=== PATIENT | female | born 1930 | race Caucasian/White ===

== ENCOUNTER → 2020-05-28 | Outpatient (CLI) | payer MEDICARE, OTHER ==
--- NOTE | 2020-05-28 10:36 | RAD ---
EXAM: Left knee, 4 views. HISTORY: Pain. Twisting injury. COMPARISON: None. FINDINGS: 4 views of the left knee are obtained. There is a left knee arthroplasty in expected positi on. 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 There is no or evidence of arthroplasty looseni ng or periprosthetic fracture. There is no significant joint effusion. There are small joint loose zeenat dies. IMPRESSION: Left knee arthroplasty in expected position. No acute osseous finding. Electronically signed by: Gloria Barr MD (05/28/2020 10:33 AM) [id number]
== END ==
LOC: RAD 10:05
PROVIDERS: ATTEND Family Medicine
DX: M25.562 Pain in left knee (principal); Z96.652 Presence of left artificial knee joint
CPT/HCPCS: 73564

== ENCOUNTER 2020-08-19 20:12 | Emergency (ER) | payer MEDICARE, OTHER ==
[~2020-08-19] VITALS: Ht 162.6 cm; Wt 93.4 kg
--- NOTE | 2020-08-19 20:25 | PHYS DOC ---
General Adult HPI: HPI: ".. I was feeling lite headed.. and I could not find my pulse..." ".. The last time I could not get my pulse.. I had to get a pacer... 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 Patient was a dependent. Pt. stated she could not find her pulse. The last time this happened she had a very slow heart rate.. and they had to put in a pacer. Pt. states pacer placement was approximately 5 yrs ago. She does have a follow up with a Echometer Engineer this coming weeks. Pt. does not remember his name currently. Pt. denies any changes in meds. No recent travel. No specific ill contacts. No history of immunosuppression. Patient did complete more during a Covid vaccination approximately 4 months ago. Patient normally follows with Dr. Aguirre. Review of Systems: Review of Systems: Constitutional: Denies fever or chills Eyes: Denies change in visual acuity HENT: Denies nasal congestion or sore throat Respiratory: Denies cough or shortness of breath Cardiovascular: Denies chest pain or edema GI: Denies abdominal pain, nausea, vomiting, bloody stools or diarrhea : Denies dysuria Musculoskeletal: Denies back pain or joint pain Integument: Denies rash Neurologic: Denies headache, focal weakness or sensory changes. Complains of generalized lightheaded-states not dizzy Endocrine: Denies polyuria or polydipsia Lymphatic: Denies swollen glands Psychiatric: Denies depression or anxiety Family History: Family History: Noncontributory Current Medications: Current Meds: See nursing for home meds Allergies: Allergies: No known drug allergies Physical Exam: PE: Constitutional: , no acute distress, non-toxic appearance. [] HENT: Normocephalic, atraumatic, bilateral external ears normal, oropharynx moist, no oral exudates, nose normal. [] Eyes: PERRLA, EOMI, conjunctiva normal, no discharge. [] Neck: Normal range of motion, no tenderness, supple, no stridor. [] Cardiovascular:Heart rate regular rhythm, no murmur []. Monitor occasionally shows pacer spikes. Lungs & Thorax: Bilateral breath sounds equal apex on auscultation [] Abdomen: Bowel sounds normal, soft, no tenderness, no masses, no pulsatile masses. Old surgical scar Skin: Warm, dry, no erythema, no rash. [Poor turgor Back: No tenderness, no CVA tenderness. [] Extremities: No tenderness, no cyanosis, no clubbing, ROM intact, no edema. [Bilateral knee scars. Left shoulder scar. Neurologic: Alert and oriented X 3, moves all extremities on request, has distal sensory,, no focal deficits noted. [] Psychologic: Affect anxious, judgement normal, mood normal. [] EKG: EKG: My interpretation EKG shows a supraventricular rhythm with left axis changes. There is some findings of pacer spike in lead I and II. [] Radiology/Procedures: Radiology/Procedures: [[address] [address] IMAGING REPORT Signed PATIENT: JOHN MARIE ACCOUNT: [id number] : 1930 LOCATION: ER AGE: 89 SEX: F EXAM STATUS: REG ER ORD. PHYSICIAN: SKY NAVAS MD REASON: dyssrhythmia, PROCEDURE: PORTABLE CHEST 1V XR CHEST 1V 08/19/2020 8:53 PM INDICATION: Dysrhythmia COMPARISON: None available TECHNIQUE: Portable frontal view of the chest is provided. FINDINGS: The cardiomediastinal silhouette is within normal limits. Left chest wall cardiac device is identified with leads projecting over the right atrium and right ventricle. There are no significant pleural effusions. There is no pulmonary vascular congestion. No pneumothorax. 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 Left reverse shoulder arthroplasty changes are present. IMPRESSION: There is no acute cardiopulmonary process. Electronically signed by: Jorge A Francis MD (08/19/2020 9:25 PM) [facility] DICTATED AND SIGNED BY: JORGE A FRANCIS MD DATE: 08/19/202123 CC: SKY NAVAS MD; MARY BETH AGUIRRE MD ~MTH0 0 ][address] [address] IMAGING REPORT Signed PATIENT: JOHN MARIE ACCOUNT: [id number] : 1930 LOCATION: ER AGE: 89 SEX: F EXAM STATUS: REG ER ORD. PHYSICIAN: SKY NAVAS MD REASON: dizzy PROCEDURE: CT HEAD WO CONTRAST CT HEAD INDICATION: Dizziness COMPARISON: None Available. Exposure: One or more of the following individualized dose reduction techniques were utilized for this examination: 1. Automated exposure control 2. Adjustment of the mA and/or kV according to patient size 3. Use of iterative reconstruction technique TECHNIQUE: 5 mm contiguous axial images were obtained from the skull base to the vertex in both bone and soft tissue algorithm. FINDINGS: Mild bilateral periventricular white matter hypodensities likely chronic small vessel ischemic disease. No evidence of acute intracranial hemorrhage. No extra-axial fluid collections. No mass effect or midline shift. Probable tiny multiple cystic structures or fatty hypodensities identified in the choroid plexus in the bilateral lateral ventricles. Basal cisterns are patent. No fractures identified.Hughes-white differentiation is preserved.Globes and orbits are within normal limits. Paranasal sinuses and mastoid air cells are clear. IMPRESSION: 1. No acute intracranial findings. 2. Probable tiny multiple cystic structures or fatty hypodensities identified in the choroid plexus in the bilateral lateral ventricles. Electronically signed by: Camilo Driscoll MD (08/19/2020 9:45 PM) [id number] DICTATED AND SIGNED BY: CAMILO DRISCOLL MD DATE: 08/19/20 2138 CC: SKY NAVAS MD; MARY BETH AGUIRRE MD ~MTH0 0 Heart Score: C/O Chest Pain: N/A HEART Score for Chest Pain: HEART Score for Chest Pain Response (Comments) Value History Slighlty/Non-Suspicious 0 ECG Normal 0 Age > 65 2 Risk Factors 1 or 2 Risk Factors 1 Troponin < Normal Limit 0 Total 3 Risk Factors: Risk Factors: DM, Current or recent (<one month) smoker, HTN, HLP, family history of CAD, obesity. Risk Scores: Score 0 - 3: 2.5% MACE over next 6 weeks - Discharge Home Score 4 - 6: 20.3% MACE over next 6 weeks - Admit for Clinical Observation Score 7 - 10: 72.7% MACE over next 6 weeks - Early Invasive Strategies Course & Med Decision Making: Course & Med Decision Making Pertinent Labs and Imaging studies reviewed. (See chart for details) Patient follow-up primary care. Patient to take a daily aspirin. Patient return if any concerns. Push fluids. Impression: 1. Complaints of malaise 2. Viral syndrome [] Dragon Disclaimer: Dragon Disclaimer: This electronic medical record was generated, in whole or in part, using a voice recognition dictation system. Departure Departure: Referrals: MARY BETH AGUIRRE MD (PCP) Jessica Disclaimer This chart was dictated in whole or in part using Voice Recognition software in a busy, high-work load, and often noisy Emergency Department environment. It may contain unintended and wholly unrecognized errors or omissions. SKY NAVSA MD Aug 19, 2020 20:24
--- NOTE | 2020-08-19 21:27 | RAD ---
XR CHEST 1V 08/19/2020 8:53 PM INDICATION: Dysrhythmia COMPARISON: None available TECHNIQUE: Portable frontal view of the chest is provided. FINDINGS: The cardiomediastinal silhouette is within normal limits. Left chest wall cardiac device is identifie d with leads projecting over the right atrium and right ventricle. There are no significant pleural effusions. There is no pulmonary vascular congestion. No pneumothora x. 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 Left reverse shoulder arthroplasty changes a re present. IMPRESSION: There is no acute cardiopulmonary process. Electronically signed by: Haylee Alvarez MD (08/19/2020 9:25 PM) DEANNA
[2020-08-19] MEDS ORDERED: IV RINGERS SOLUTION,LACTATED 1,000 ML IV SCH (21:30)
[2020-08-19 21:43] LABS: BASO # 0.1 x10^3/uL (0.0-0.2); BASO % 1 % (0-3); EOS # 0.5 x10^3/uL (0.0-0.7); EOS % 6 % (0-3); HEMATOCRIT 41.8 % (36.0-47.0); HEMOGLOBIN 13.9 g/dL (12.0-15.5); LYMPH # 1.5 x10^3/uL (1.0-4.8); LYMPH % 20 % (24-48); MEAN CORPUSCULAR HEMOGLOBIN 31 pg (25-35); MEAN CORPUSCULAR HGB CONC 33 g/dL (31-37); MEAN CORPUSCULAR VOLUME 94 fL (79-100); MONO # 0.9 x10^3/uL (0.0-1.1); MONO % 12 % (0-9); NEUT # 4.6 x10^3uL (1.8-7.7); NEUT % 61 % (31-73); PLATELET COUNT 244 x10^3/uL (140-400); RED BLOOD COUNT 4.44 x10^6/uL (3.50-5.40); RED CELL DISTRIBUTION WIDTH 13.9 % (11.5-14.5); WHITE BLOOD COUNT 7.6 x10^3/uL (4.0-11.0)
--- NOTE | 2020-08-19 21:48 | RAD ---
CT HEAD INDICATION: Dizziness COMPARISON: None Available. Exposure: One or more of the following individualized dose reduction techniques were utilized for thi s examination: 1. Automated exposure control 2. Adjustment of the mA and/or kV according to patient size 3. Use of iterative reconstruction technique TECHNIQUE: 5 mm contiguous axial images were obtained from the skull base to the vertex in both bone and soft tissue algorithm. FINDINGS: Mild bilateral periventricular white matter hypodensities likely chronic small vessel ischemic diseas e. No evidence of acute intracranial hemorrhage. No extra-axial fluid collections. No mass effect or midline shift. Probable tiny multiple cystic structures or fatty hypodensities iden tified in the choroid plexus in the bilateral lateral ventricles. Basal cisterns are patent. No fractures identified.Hughes-white differentiation is preserved.Globes and orbits are within normal l imits. Paranasal sinuses and mastoid air cells are clear. IMPRESSION: 1. No acute intracranial findings. 2. Probable tiny multiple cystic structures or fatty hypodensities identified in the choroid plexus in the bilateral lateral ventricles. Electronically signed by: Camilo Driscoll MD (08/19/2020 9:45 PM) [id number]
[2020-08-19 21:49] LABS: CALCIUM 9.2 mg/dL (8.5-10.1); GFR 52.3; POTASSIUM 4.2 mmol/L (3.5-5.1)
[2020-08-19 22:01] LABS: ALBUMIN 3.4 g/dL (3.4-5.0); DIRECT BILIRUBIN 0.1 mg/dL (0.0-0.2); MAGNESIUM 1.9 mg/dL (1.8-2.4); TOTAL BILIRUBIN 0.3 mg/dL (0.2-1.0); TOTAL PROTEIN 6.7 g/dL (6.4-8.2)
[2020-08-19 22:15] LABS: BACTERIA,URINE 0 /HPF (0-FEW); BILIRUBIN,URINE NEG (NEG); CLARITY,URINE CLEAR; COLOR,URINE YELLOW; GLUCOSE,URINE NEG (NEG); NITRITE,URINE NEG (NEG); RBC,URINE 0 /HPF (0-2); SQUAMOUS EPITHELIAL CELL,UR OCC /LPF; UROBILINOGEN,URINE 0.2 mg/dL (0.2 mg/dL); WBC,URINE RARE /HPF (0-4)
[2020-08-19 22:17] LABS: BARBITURATES NEG (NEG); BENZODIAZEPINES NEG (NEG); CANNABINOIDS NEG (NEG); COCAINE NEG (NEG); METHADONE NEG (NEG); OPIATES NEG (NEG); PHENCYCLIDINE NEG (NEG)
[2020-08-19 22:20] LABS: AMPHETAMINE/METHAMPHETAMINE NEG (NEG)
[2020-08-19 23:10] VITALS: BP 147/88
--- NOTE | 2020-08-20 06:41 | EKG ---
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
[2020-08-20 15:58] LABS: THYROID STIM HORMONE (TSH) 2.849 uIU/mL (0.358-3.740)
== END 2020-08-19 23:12 | disposition home or self-care (01) ==
LOC: ER 20:12
DX: B34.9 Viral infection, unspecified (principal); R53.81 Other malaise
CPT/HCPCS: 36415; 70450; 71045; 80048; 80061; 80076; 80307; 81001; 82550; 83735; 83880; 84443; 84484; 85025; 87086; 93005; 96360; 96361; 99285; J7120

== ENCOUNTER 2020-11-27 07:34 | Emergency (ER) | payer MEDICARE, OTHER ==
[~2020-11-27] VITALS: Ht 162.6 cm; Wt 118.0 kg
[2020-11-27] MEDS ORDERED: MECLIZINE 12.5 MG TABLET. PO ONE (08:15)
[2020-11-27] MEDS ORDERED: ONDANSETRON PF 4 MG/2 ML VIAL. IVP ONE (08:15)
--- NOTE | 2020-11-27 09:19 | PHYS DOC ---
Past History Past Surgical History: Cholecystectomy, Knee Replacement Additional Past Surgical Histo: shoulder replacement Alcohol Use: None General Adult EDM: Chief Complaint: DIZZY/LIGHT HEADED HPI: HPI: Patient is a 89-year-old female coming in for an episode of dizziness this morning. Patient states that when she woke up she looked up and heard her alarm and things are spinning. Patient said the symptoms are better with being still and worse with turning her head or trying to stand. Patient states she had slight episodes yesterday. States because of the dizziness she vomited once and dry heaves twice. Patient states symptoms are completely resolved now. Denies any falls, tinnitus. Patient has baseline hearing loss. Patient states that she has been congested and having to blow her nose more frequently. Review of Systems: Review of Systems: All other systems within normal limits except for as noted in the HPI Current Medications: Current Meds: Current Medications Medications (Trade) Dose Ordered Sig/Sarah Start Time Stop Time Status Last Admin Dose Admin Meclizine HCl (Antivert) 25 mg 1X ONCE 11/27/20 08:15 11/27/20 08:16 DC Ondansetron HCl (Zofran) 4 mg 1X ONCE 11/27/20 08:15 11/27/20 08:16 DC Allergies: Allergies: Allergies Coded Allergies Type Severity Reaction Last Updated Verified No Known Drug Allergies 08/19/20 No Physical Exam: PE: Constitutional: Well developed, well nourished, no acute distress, non-toxic appearance. [] HENT: Normocephalic, atraumatic, bilateral external ears normal, nose normal. Bilateral TMs are [] Eyes: PERRLA, conjunctiva normal, no discharge. No nystagmus, extraocular was intact [] Neck: No rigidity, supple, no stridor. [] Cardiovascular: Regular rate and rhythm, brisk cap refill [] Lungs & Thorax: Non labored symmetric respirations, no tachypnea or respiratory distress [] Abdomen: Soft, nondistended. Skin: Warm, dry, no erythema, no rash. [] Back: Unremarkable Extremities: No deformities, range of motion grossly intact, no lower extremity edema [] Neurologic: Alert and oriented X 3, no focal deficits noted. Unable to induce nystagmus with movement [] Psychologic: Affect normal, judgement normal, mood normal. [] Current Patient Data: Vital Signs: Vital Signs Date Time Temp Pulse Resp B/P (MAP) Pulse Ox O2 Delivery O2 Flow Rate FiO2 11/27/20 08:18 98.2 84 16 149/92 111 97 Room Air EKG: EKG: Sinus rhythm, left axis deviation, no ST elevation or depression, no ectopy, normal intervals [] Radiology/Procedures: Radiology/Procedures: [][place] [address] IMAGING REPORT Signed PATIENT: JOHN MARIE ACCOUNT: [id number] : 1930 LOCATION: ER AGE: 89 SEX: F EXAM STATUS: REG ER ORD. PHYSICIAN: FREDDY FERGUSON MD REASON: vertigo PROCEDURE: CT HEAD WO CONTRAST CT HEAD/BRAIN WO Date: 11/27/2020 8:50 AM Clinical Indication: vertigo: Comparison: 08/19/2020. Technique: 5 mm axial tomographic images were obtained of the head without contrast. These were viewed on brain and bone windows. One or more of the following dose reduction techniques were utilized: Automated exposure control (AEC), Adjustment of mA and/or kV according to patient size, Use of iterative reconstruction technique such as ASiR, CT scan done according to ALARA and image gently/image wisely Findings: Mild generalized cerebral and cerebellar volume loss. Moderate nonspecific periventricular hypoattenuation, most commonly seen with chronic small vessel ischemic disease. Calcified atherosclerosis of the bilateral cavernous and paraclinoid internal carotid arteries and intracranial vertebral arteries. No intra- or extra-axial mass or fluid collection. No acute hemorrhage. The ventricles are normal in size, shape, and morphology. The ashraf-white matter junction is normal. The subarachnoid cisterns are patent. The visualized paranasal sinuses are normal. The visualized portions of the orbits and globes are normal. The mastoid air cells are clear. The cane burner topogram shows no lytic lesion or fracture. Impression: No acute intracranial process. Mild cerebral volume loss. Moderate chronic small vessel ischemic disease. Electronically signed by: John Campbell MD (11/27/2020 9:17 AM) [facility] DICTATED AND SIGNED BY: JOHN CAMPBELL MD DATE: 11/27/20915 CC: FREDDY FERGUSON MD; MARY BETH AGUIRRE MD ~MTH0 0 Heart Score: C/O Chest Pain: No HEART Score for Chest Pain: HEART Score for Chest Pain Response (Comments) Value History Slighlty/Non-Suspicious 0 ECG Normal 0 Age > 65 2 Risk Factors 1 or 2 Risk Factors 1 Troponin < Normal Limit 0 Total 3 Risk Factors: Risk Factors: DM, Current or recent (<one month) smoker, HTN, HLP, family history of CAD, obesity. Risk Scores: Score 0 - 3: 2.5% MACE over next 6 weeks - Discharge Home Score 4 - 6: 20.3% MACE over next 6 weeks - Admit for Clinical Observation Score 7 - 10: 72.7% MACE over next 6 weeks - Early Invasive Strategies Course & Med Decision Making: Course & Med Decision Making Pertinent Labs and Imaging studies reviewed. (See chart for details) [] Dragon Disclaimer: Dragon Disclaimer: This electronic medical record was generated, in whole or in part, using a voice recognition dictation system. Departure Departure: Impression: Primary Impression: Vertigo Disposition: HOME / SELF CARE / HOMELESS Condition: STABLE Referrals: MARY BETH AGUIRRE MD (PCP) Patient Instructions: Vertigo FREDDY FERGUSON MD Nov 27, 2020 09:19
--- NOTE | 2020-11-27 09:20 | RAD ---
CT HEAD/BRAIN WO Date: 11/27/2020 8:50 AM Clinical Indication: vertigo: Comparison: 08/19/2020. Technique: 5 mm axial tomographic images were obtained of the head without contrast. These were view ed on brain and bone windows. One or more of the following dose reduction techniques were utilized: A utomated exposure control (AEC), Adjustment of mA and/or kV according to patient size, Use of iterati ve reconstruction technique such as ASiR, CT scan done according to ALARA and image gently/image salazar ly Findings: Mild generalized cerebral and cerebellar volume loss. Moderate nonspecific periventricular hypoattenu ation, most commonly seen with chronic small vessel ischemic disease. Calcified atherosclerosis of th e bilateral cavernous and paraclinoid internal carotid arteries and intracranial vertebral arteries. No intra- or extra-axial mass or fluid collection. No acute hemorrhage. The ventricles are normal in size, shape, and morphology. The ashraf-white matter junction is normal. The subarachnoid cisterns are patent. The visualized paranasal sinuses are normal. The visualized portions of the orbits and globes are no rmal. The mastoid air cells are clear. The station supervisor topogram shows no lytic lesion or fracture. Impression: No acute intracranial process. Mild cerebral volume loss. Moderate chronic small vessel ischemic disease. Electronically signed by: Danny Campbell MD (11/27/2020 9:17 AM) [facility]
[2020-11-27 09:29] LABS: BASO # 0.1 x10^3/uL (0.0-0.2); BASO % 1 % (0-3); EOS # 0.1 x10^3/uL (0.0-0.7); EOS % 2 % (0-3); HEMATOCRIT 41.6 % (36.0-47.0); HEMOGLOBIN 13.8 g/dL (12.0-15.5); LYMPH # 0.9 x10^3/uL (1.0-4.8); LYMPH % 9 % (24-48); MEAN CORPUSCULAR HEMOGLOBIN 31 pg (25-35); MEAN CORPUSCULAR HGB CONC 33 g/dL (31-37); MEAN CORPUSCULAR VOLUME 94 fL (79-100); MONO # 0.6 x10^3/uL (0.0-1.1); MONO % 6 % (0-9); NEUT # 8.3 x10^3uL (1.8-7.7); NEUT % 83 % (31-73); PLATELET COUNT 235 x10^3/uL (140-400); RED BLOOD COUNT 4.44 x10^6/uL (3.50-5.40); RED CELL DISTRIBUTION WIDTH 13.8 % (11.5-14.5)
[2020-11-27 10:42] LABS: CALCIUM 9.2 mg/dL (8.5-10.1); CREATININE 0.8 mg/dL (0.6-1.0); GFR 67.7; POTASSIUM 3.8 mmol/L (3.5-5.1)
[2020-11-27 10:54] LABS: ALBUMIN 3.4 g/dL (3.4-5.0); ALBUMIN/GLOBULIN RATIO 0.9 (1.0-1.7); MAGNESIUM 1.9 mg/dL (1.8-2.4); PHOSPHORUS 2.9 mg/dL (2.6-4.7); TOTAL BILIRUBIN 0.3 mg/dL (0.2-1.0)
[2020-11-27 11:30] VITALS: BP 143/78
--- NOTE | 2020-11-27 14:34 | EKG ---
[address] [address] Test Date: 2020-11-27 Test Time: 08:19:03 Pat Name: JOHN MARIE Department: Room: Gender: F Entrepreneur: MIKHAIL : 1930 Requested By: FREDDY FERGUSON Order Number: [id number] Reading MD: Melo Infante MD Measurements Intervals Elizabeth Rate: 61 P: -60 TX: 142 QRS: -20 QRSD: 78 T: 6 QT: 414 QTc: 422 Interpretive Statements A-PACED Electronically Signed On 11-29-2020 11:01:03 CDT by Melo Infante MD
== END 2020-11-27 11:35 | disposition home or self-care (01) ==
LOC: ER 07:34
DX: R42 Dizziness and giddiness (principal); Z90.49 Acquired absence of other specified parts of digestive tract
CPT/HCPCS: 36415; 70450; 80053; 83735; 83880; 84100; 84484; 85025; 85610; 93005; 99285-25